=== PATIENT | male | born 1975 | race Caucasian/White ===

== ENCOUNTER 2021-02-25 11:25 | Emergency (ER) | payer OTHER ==
[2021-02-25] MEDS ORDERED: Diphtheria,Pertussis(Acell),Tetanus Vaccine 0.5 ML Syringe IM ONE (11:40)
[2021-02-25] MEDS ORDERED: Bupivacaine 0.5% 10 ML SDV INJECT ONE (11:54)
--- NOTE | 2021-02-25 12:20 | CR ---
For Patients: As a result of the Cures Act, medical imaging exams and procedure reports are released immediately into your electronic medical record. You may view this report before your referring provider. If you have questions, please contact your health care provider. Indication: Injury and pain Technique: Left 2nd finger 3 views Comparison: None Findings/Impression: Bones: Acute transverse nondisplaced fracture present in the distal aspect of the distal phalanx in the left 2nd finger. No other osseous abnormality. Joint spaces: Unremarkable. Soft tissues: Soft tissue injury is adjacent to the fracture. Dictated by Mekhi Lewis MD @ 02/25/2021 12:18:[address] Mekhi Lewis @ Feb 25 2021 12:18PM
--- NOTE | 2021-02-25 12:35 | EDM.PDOC ---
ED HPI GENERAL MEDICAL PROBLEM - General Chief Complaint: Upper Extremity Injury/Pain Stated Complaint: SMASHED FINGER Time Seen by Provider: 02/25/21 11:28 Source of Information: Reports: Patient History Limitations: Reports: No Limitations - History of Present Illness INITIAL COMMENTS - FREE TEXT/NARRATIVE: HISTORY AND PHYSICAL: History of present illness: Patient is a 45-year-old male who presents to the emergency department secondary to a 1 hour history slamming his finger in a car door. Patient reports that after he did this he tried to pull the nail off as it was just loosely hanging for some skin on the side but noticed when he did so he could see the bone underneath the nail so he kept the nail on. Patient reports that this injury did happen at work. Patient reports that he is right-hand dominant. Patient states that he does not believe he is up-to-date on his tetanus. Patient reports that he was at work at the time of the accident. Patient denies fever, chills, chest pain, shortness of breath, or cough. Denies headache, neck stiff ness, change in vision, syncope, or near syncope. Denies nausea, vomiting, abdominal pain, diarrhea, constipation, or dysuria. Has not noted any blood in urine or stool. Patient has been eating and drinking appropriately. Review of systems: As per history of present illness and below otherwise all systems reviewed and negative. Past medical history: As per history of present illness and as reviewed below otherwise noncontributory. Surgical history: As per history of present illness and as reviewed below otherwise noncontributory. Social history: See social history for further information Family history: As per history of present illness and as reviewed below otherwise noncontributory. Physical exam: General: Patient is alert, oriented, and in no acute distress. Patient sitting comfortably on exam table. Vitals stable and reviewed by me. HEENT: Atraumatic, normocephalic, pupils equal and reactive bilaterally, negative for conjunctival pallor or scleral icterus, mucous membranes moist, TMs normal bilaterally, throat clear, neck supple, nontender, trachea midline. No drooling or trismus noted. No meningeal signs. No hot potato voice noted. Lungs: Clear to auscultation, breath sounds equal bilaterally, chest nontender. Heart: S1S2, regular rate and rhythm without overt murmur Abdomen: Soft, nondistended, nontender. Negative for masses or hepatosplenomegaly. Negative for costovertebral tenderness. Pelvis: Stable nontender. Genitourinary: Deferred. Rectal: Deferred. Skin: Intact, warm, dry. No lesions or rashes noted. Extremities: The patient's left hand on his second digit shows a partially avulsed nail at the base of the nail bed with an underlying hematoma of the nail and a 1 cm laceration just proximal to the nail, patient has full active and passive range of motion as well as sensation in the digit, capillary refill less than 2 seconds, otherwise atraumatic, negative for cords or calf pain. Neurovascular unremarkable. Neuro: Awake, alert, oriented. Cranial nerves II through XII unremarkable. Cerebellum unremarkable. Motor and sensory unremarkable throughout. Exam nonfoc al. Notes: Patient is a 45-year-old male who presents emergency department secondary to 1 hour history of slamming his finger in a car door. Upon exam patient is calm and resting comfortably on the exam table. Patient's vitals are stable. Patient has full active and passive range of motion and is neurovascularly intact in that digit. Underneath the avulsed nail bed, able to see a small area of bone exposure. Will obtain a hand x-ray. X-ray shows transverse fracture of the distal aspect of distal phalanx on the second digit of the left hand. I did call and speak to the hand specialist electronics recycler for [facility], Dr. Velasquez, and thoroughly discussed patients case. He would like patient placed on keflex and to follow up with him in his clinic later this week. Signs and symptoms that would prompt return to the emergency department thoroughly discussed with patient. Discussed with patient the need to follow-up with Dr. Velasquez in [place] and to call his office today or tomorrow to set up an appointment this week Voices understanding and is agreeable to plan of care. Denies any further questions or concerns at this time. Diagnostics: Hand x-ray Therapeutics: Sutures, Tdap, Lidocaine/Bupivacaine, Finger splint and bulky dressing placed by nursing staff Prescription: Keflex Impression: Open distal phalanx fracture, 2nd digit, left Nail avulsion, 2nd digit, left Plan: 1. Rest, ice, elevate the affected extremity. You can apply ice 15 minutes on, 15 minutes off. Keep splint on and dressing until follow up with the hand specialist. 2. Tylenol and/or Ibuprofen as directed for pain management or discomfort. Take medication as prescribed. 3. Follow up with the hand specialist, Dr. Velasquez provider as discussed. The number has been provided above for you to call and establish an appointment time. Return to the ED as needed and as discussed. Definitive disposition and diagnosis as appropriate pending reevaluation and review of above. Left Pointer Pain Score (Numeric/FACES): 4 - Related Data Allergies Allergy/AdvReac Type Severity Reaction Status Date / Time No Known Allergies Allergy Verified 02/25/21 11:35 Home Meds: Home Meds cephALEXin [Keflex] 500 mg PO BID 10 Days #20 cap 02/25/21 [Rx] Past Medical History - Past Health History Medical/Surgical History: Denies Medical/Surgical History - Infectious Disease History Infectious Disease History: Reports: None Social & Family History - Family History Family Medical History: No Pertinent Family History - Tobacco Use Tobacco Use Status *Q: Never Tobacco User - Recreational Drug Use Recreational Drug Use: No Review of Systems - Review of Systems Review Of Systems: Comprehensive ROS is negative, except as noted in HPI. ED EXAM, GENERAL - Physical Exam Exam: See Below (see dictation) ED TRAUMA EXTREMITY PROCEDURES - Laceration/Wound Repair Left Distal Digit - 2nd (Index) Lac/Wound Length In cm: 1 Appearance: Irregular, Mildly Contaminated Distal NVT: Neuro & Vascular Intact, No Tendon Injury Anesthetic Type: Digital Local Anesthesia - Lidocaine (Xylocaine): 1% Plain Local Anesthesia - Bupivicaine (Marcaine): 0.5% Plain Local Anesthetic Volume: Other (6cc) Skin Prep: Chlorhexidine (Hibiciens), Saline Saline Irrigation (cc's): 500 Exploration/Debridement/Repair: Wound Explored, In a Bloodless Field, Explored to Base, No Foreign Material Found Closed With: Sutures Suture Size: 4-0 # of Sutures: 2 Suture Type: Nylon, Interrupted Drain Placement: No Sterile Dressing Applied: Nurse Tetanus Status Addressed: Yes Complications: No Course - Vital Signs Last Recorded V/S: Last Vital Signs Temp 97.6 F 02/25/21 11:36 Pulse 63 02/25/21 12:50 Resp 17 02/25/21 11:36 BP 117/80 02/25/21 12:50 Pulse Ox 97 02/25/21 12:50 - Orders/Labs/Meds Meds: Medications Discontinued Medications Generic Name Dose Route Start Last Admin Trade Name Shazia PRN Reason Stop Dose Admin Bupivacaine HCl 10 ml 02/25/21 11:54 02/25/21 12:25 Bupivacaine 0.5% 10 Ml Sdv INJECT 02/25/21 11:55 10 ml ONETIME ONE Administration Diphtheria/Tetanus/Acell Pertussis 0.5 ml 02/25/21 11:40 02/25/21 12:25 Diphtheria,Pertussis(Acell),Tetanus Vaccine 0.5 Ml Syringe IM 02/25/21 11:41 0.5 ml .ONCE ONE Administration Lidocaine HCl 5 ml 02/25/21 11:51 02/25/21 12:25 Lidocaine 1% 5 Ml Sdv INJECT 02/25/21 11:52 5 ml ONETIME ONE Administration Departure - Departure Time of Disposition: 12:32 Disposition: Home, Self-Care 01 Clinical Impression: Open fracture of distal phalanx, Nail avulsion - Discharge Information Prescriptions: cephALEXin [Keflex] 500 mg PO BID 10 Days #20 cap Instructions: Crush Injury of the Hand, [id number] Forms: ED Department Discharge Additional Instructions: The following information is given to patients seen in the emergency department who are being discharged to home. This information is to outline your options for follow-up care. We provide all patients seen in our emergency department with a follow-up referral. The need for follow-up, as well as the timing and circumstances, are variable depending upon the specifics of your emergency department visit. If you don't have a primary care physician on staff, we will provide you with a referral. We always advise you to contact your personal physician following an emergency department visit to inform them of the circumstance of the visit and for follow-up with them and/or the need for any referrals to a consulting specialist. The emergency department will also refer you to a specialist when appropriate. This referral assures that you have the opportunity for follow-up care with a specialist. All of these measure are taken in an effort to provide you with optimal care, which includes your follow-up. Under all circumstances we always encourage you to contact your private physician who remains a resource for coordinating your care. When calling for follow-up care, please make the office aware that this follow-up is from your recent emergency room visit. If for any reason you are refused follow-up, please contact the [facility] Emergency Department at and asked to speak to the emergency department charge nurse. [facility], Hand and Wrist Surgery, Dr. Velasquez [address] [place] [id number] PH: [phone] 1. Rest, ice, elevate the affected extremity. You can apply ice 15 minutes on, 15 minutes off. Keep splint on and dressing until follow up with the hand specialist. 2. Tylenol and/or Ibuprofen as directed for pain management or discomfort. Take medication as prescribed. 3. Follow up with the hand specialist, Dr. Velasquez provider as discussed. The number has been provided above for you to call and establish an appointment time. Return to the ED as needed and as discussed. Sepsis Event Note (ED) - Evaluation Sepsis Screening Result: No Definite Risk - Focused Exam Vital Signs: Vital Signs Temp Pulse Resp BP Pulse Ox 02/25/21 12:50 63 117/80 97 02/25/21 11:36 97.6 F 86 17 136/74 96
== END 2021-02-25 12:51 | disposition home or self-care (01) ==
LOC: MW.ED 11:25
DX: S62.631B Displaced fracture of distal phalanx of left index finger, initial encounter for open fracture (principal); Z23 Encounter for immunization; W26.8XXA Contact with other sharp object(s), not elsewhere classified, initial encounter; W22.8XXA Striking against or struck by other objects, initial encounter
CPT/HCPCS: 12001; 73140; 90471; 90715; 99283; J3490

== ENCOUNTER 2021-11-04 23:59 | Observation (INO) | payer SELFPAY ==
[2021-11-05] MEDS ORDERED: Lactated Ringers 1,000 ML IV ONE (00:09)
[2021-11-05 01:00] LABS: BLOOD UREA NITROGEN,BUN 15 mg/dL (7.0-18.0); CARBON DIOXIDE,CO2 26.5 mmol/L (21.0-32.0); CHLORIDE,CL 102 mmol/L (98-107); GLUCOSE RANDOM 112 mg/dL (74-106); POTASSIUM,K 3.7 mmol/L (3.5-5.1); SODIUM,NA 140 mmol/L (136-148)
[2021-11-05] MEDS ORDERED: Lactated Ringers 1,000 ML IV STA (01:16)
[2021-11-05 01:24] LABS: CORONAVIRUS COVID-19 NAA NEGATIVE (NEGATIVE); INFLUENZA A NAA NEGATIVE (NEGATIVE); INFLUENZA B NAA NEGATIVE (NEGATIVE)
[2021-11-05 03:38] LABS: BLOOD UREA NITROGEN,BUN 13 mg/dL (7.0-18.0); CARBON DIOXIDE,CO2 29.5 mmol/L (21.0-32.0); CHLORIDE,CL 105 mmol/L (98-107); GLUCOSE RANDOM 121 mg/dL (74-106); POTASSIUM,K 4.4 mmol/L (3.5-5.1); SODIUM,NA 142 mmol/L (136-148)
[2021-11-05 07:49] LABS: BLOOD UREA NITROGEN,BUN 14 mg/dL (7.0-18.0); CARBON DIOXIDE,CO2 26.4 mmol/L (21.0-32.0); CHLORIDE,CL 106 mmol/L (98-107); GLUCOSE RANDOM 122 mg/dL (74-106); SODIUM,NA 143 mmol/L (136-148)
[2021-11-05 12:18] LABS: BLOOD UREA NITROGEN,BUN 14 mg/dL (7.0-18.0); CARBON DIOXIDE,CO2 26.7 mmol/L (21.0-32.0); CHLORIDE,CL 106 mmol/L (98-107); GLUCOSE RANDOM 107 mg/dL (74-106); POTASSIUM,K 4.3 mmol/L (3.5-5.1); SODIUM,NA 141 mmol/L (136-148)
== END 2021-11-05 16:20 | disposition home or self-care (01) ==
LOC: MW.ED 23:59 → MW.MS 11-05 01:49
PROVIDERS: ADMIT Internal Medicine; ATTEND Internal Medicine
DX: T51.1X1A Toxic effect of methanol, accidental (unintentional), initial encounter (principal); F17.210 Nicotine dependence, cigarettes, uncomplicated; Z20.822 Contact with and (suspected) exposure to COVID-19; Z91.030 Bee allergy status
CPT/HCPCS: 0240U; 36415; 80048; 80053; 80307; 81003; 82803; 83605; 83930; 85025; 99283; 99284; G0378; J7120